=== PATIENT | male | born 1930 | race Caucasian/White ===

== ENCOUNTER 2016-09-12 09:42 | Day surgery (SDC) | payer OTHER ==
[~2016-09-12] VITALS: Ht 167.6 cm; Wt 82.8 kg
[~2016-09-12 09:42] MED LIST: ACYCLOVIR200 MG PO; AMLODIPINE-BEN1 EAC3 PO; AMLODIPINE-BEN1 EACH PO; ANTIVERT25 MG PO; ASPIR-LOW81 MG PO; CARVEDILOL6.25 MG PO; CYANOCOBALAM1000 MCG PO; GLIPIZIDE ER2.5 MG PO; HYDROCHLOROTH12.5 M3 PO; HYDROXYZINE HCL25 MG PO; IRON325 M1 PO; KENALOG,ARISTOC80 GM TP; LATANOPROST; LATANOPROST2.5 ML BOTH EYES; METFORMIN; METFORMIN HCL1000 MG PO; NASAL DECONGEST30 MG PO; OCUVITE TABLET1 EACH PO; PANTOPRAZOLE SO40 MG PO; PRINZIDE 10-121 EACH PO; SIMVASTATIN TAB 40M; SIMVASTATIN40 MG PO; TAMIFLU30 MG PO; TIMOLOL MALEATE15 M1 BOTH EYES; TIMOLOL MALEATE5 ML BOTH EYES; TIMOPTIC-0100 DROP/1 BOTH EYES; VITAMIN B122500 MCG PO; ZESTRIL20 MG PO; ZESTRIL30 MG PO
[2016-09-12 10:47] LABS: POINT-OF-CARE METER ID UU13113696
[2016-09-12 16:30] VITALS: BP 137/61
[2016-09-12 17:30] VITALS: BP 124/58
[2016-09-12 21:00] VITALS: BP 129/63
[2016-09-12 23:25] VITALS: BP 112/61
[2016-09-13 04:16] VITALS: BP 129/69
[2016-09-13 05:51] LABS: EOSINOPHIL (%) 8.1 % (0-5); EOSINOPHIL COUNT 0.4 K/uL (0-0.3); IMMATURE GRANULOCYTE (%) 0.4 % (0.0-0.7); INSTRUMENT ABS NEUTROPHIL CT 3.3 K/uL; LYMPHOCYTE COUNT 1.2 K/uL (1.0-2.8); MCH 30.3 PG (29.0-34.0); MCHC 34.8 G/DL (30.0-36.0); MCV 87.1 FL (86-99); MEAN PLAT.VOLUME 11.1 uM^3 (9.0-12.4); MONOCYTE (%) 8.4 % (3-12); MONOCYTE COUNT 0.5 K/uL (0-0.8); NEUTROPHIL COUNT 3.3 K/uL (1.8-6.4); PLATELET COUNT 137 K/uL (156-360); RBC DIS.WIDTH-CV 13.2 % (11.8-14.6); RBC DIS.WIDTH-SD 41.6 % (39-53); RED BLOOD COUNT 3.56 M/uL (4.00-5.50); WHITE BLOOD COUNT 5.5 K/uL (4.1-10.2)
[2016-09-13 06:28] LABS: ANION GAP 9 MEQ/L (2-14); CHLORIDE 105 MEQ/L (99-109); GFR ESTIMATE (CALCULATED) > 59 mL/min/; GLUCOSE 101 mg/dL (70-99); SAMPLE HEMOLYSIS CHECK 0; SAMPLE ICTERIC CHECK 0; SAMPLE LIPEMIA CHECK 0; SODIUM 137 MEQ/L (136-147); UREA NITROGEN (BUN) 15 mg/dL (9-23)
[2016-09-13 06:51] VITALS: BP 160/86
[2016-09-13 11:20] VITALS: BP 169/83
[2016-09-13] MEDS ORDERED: CLOPIDOGREL75 MG PO (13:39)
[2016-09-13] MEDS ORDERED: ASPIRIN EC325 MG PO (13:41)
[2016-09-13] MEDS ORDERED: NITROSTAT0.4 MG SL (13:43)
== END 2016-09-13 14:48 | disposition home or self-care (01) ==
LOC: CATH 09:42 → 4EAST 13:30 → 2SOUTH 13:30 → 4EAST 15:51
PROVIDERS: Internal Medicine Cardiovascular Disease
PROC: 4A023N7 Measurement of Cardiac Sampling and Pressure, Left Heart, Percutaneous Approach (ICD-10-PCS; principal; 2016-09-12)
PROC: B2151ZZ Fluoroscopy of Left Heart using Low Osmolar Contrast (ICD-10-PCS; principal; 2016-09-12)
PROC: B2111ZZ Fluoroscopy of Multiple Coronary Arteries using Low Osmolar Contrast (ICD-10-PCS; principal; 2016-09-12)
DX: I25.10 Atherosclerotic heart disease of native coronary artery without angina pectoris (principal); I10 Essential (primary) hypertension; E11.9 Type 2 diabetes mellitus without complications; E78.5 Hyperlipidemia, unspecified; Z86.73 Personal history of transient ischemic attack (TIA), and cerebral infarction without residual deficits; Z79.84 Long term (current) use of oral hypoglycemic drugs; Z83.3 Family history of diabetes mellitus; Z80.0 Family history of malignant neoplasm of digestive organs; Z82.49 Family history of ischemic heart disease and other diseases of the circulatory system; Z87.891 Personal history of nicotine dependence
CPT/HCPCS: 80048; 82948; 85025; 85347; 93005; C1725; C1769; C1874; C1887; G0378; J0360; J1644; J2250; J3010; J7030

== ENCOUNTER 2017-07-21 16:18 | Emergency (ER) | payer OTHER ==
[~2017-07-21] VITALS: Ht 167.6 cm; Wt 81.8 kg
[~2017-07-21 16:18] MED LIST changes: +ASPIRIN EC325 MG PO; +CLOPIDOGREL75 MG PO; +NITROSTAT0.4 MG SL
[2017-07-21] MEDS ORDERED: TRAMADOL HCL50 MG PO (17:59)
[2017-07-21 18:18] VITALS: BP 128/68
== END 2017-07-21 18:19 | disposition home or self-care (01) ==
LOC: EME 16:18
DX: S93.601A Unspecified sprain of right foot, initial encounter (principal); M19.071 Primary osteoarthritis, right ankle and foot; W01.0XXA Fall on same level from slipping, tripping and stumbling without subsequent striking against object, initial encounter; Y93.H2 Activity, gardening and landscaping; Y92.007 Garden or yard of unspecified non-institutional (private) residence as the place of occurrence of the external cause; E11.9 Type 2 diabetes mellitus without complications; E78.5 Hyperlipidemia, unspecified; I10 Essential (primary) hypertension; K21.9 Gastro-esophageal reflux disease without esophagitis; Z86.73 Personal history of transient ischemic attack (TIA), and cerebral infarction without residual deficits; Z87.891 Personal history of nicotine dependence; Z79.84 Long term (current) use of oral hypoglycemic drugs
CPT/HCPCS: 73610; 73630